=== PATIENT | male | born 1945 | race Caucasian/White ===

== ENCOUNTER 2017-08-28 07:05 | Outpatient (CLI) | payer OTHER | END 2017-08-28 07:16 | disposition home or self-care (01) | LOC: SONOGRAMA 07:05 | DX: N28.1 Cyst of kidney, acquired (principal) ==

== ENCOUNTER → 2017-10-23 | Outpatient (CLI) | payer OTHER | END | disposition home or self-care (01) | LOC: TOM 09:00 | DX: N20.0 Calculus of kidney (principal) ==

== ENCOUNTER 2018-01-01 03:55 | Emergency (ER) | payer OTHER ==
[~2018-01-01] VITALS: Ht 175.3 cm; Wt 89.8 kg
[2018-01-01] MEDS ORDERED: LIPITOR20 MG (04:06)
[2018-01-01] MEDS ORDERED: IRBESARTAN150 MG (04:06)
[2018-01-01] MEDS ORDERED: ORPHENADRINE C100 MG PO (05:00)
[2018-01-01] MEDS ORDERED: KETO10TA2 PO (05:00)
== END 2018-01-01 05:20 | disposition home or self-care (01) ==
LOC: ER 03:55
DX: M54.2 Cervicalgia (principal)

== ENCOUNTER 2020-05-16 12:07 | Outpatient (CLI) | payer OTHER ==
[~2020-05-16 12:07] MED LIST: IRBESARTAN150 MG; KETO10TA2 PO; LIPITOR20 MG; ORPHENADRINE C100 MG PO
== END 2020-05-16 12:15 | disposition home or self-care (01) ==
LOC: LAB 12:07
PROVIDERS: ATTEND Urology
DX: R31.0 Gross hematuria (principal); N28.1 Cyst of kidney, acquired; R31.1 Benign essential microscopic hematuria

== ENCOUNTER → 2020-05-25 | Outpatient (CLI) | payer OTHER | END | disposition home or self-care (01) | LOC: TOM 07:14 | PROVIDERS: ATTEND Urology | DX: Q44.6 Cystic disease of liver (principal); K40.90 Unilateral inguinal hernia, without obstruction or gangrene, not specified as recurrent | CPT/HCPCS: 74178; Q9965 ==

== ENCOUNTER 2020-09-28 06:52 | Day surgery (SDC) | payer OTHER ==
[~2020-09-28 06:52] MED LIST changes: +AMLODIP PO; +VIAGRA100 MG PO
== END 2020-09-28 14:30 | disposition home or self-care (01) ==
LOC: CIR.AMB 06:52
PROVIDERS: ATTEND Urology
DX: C61 Malignant neoplasm of prostate (principal); C67.8 Malignant neoplasm of overlapping sites of bladder; D29.1 Benign neoplasm of prostate; Z20.822 Contact with and (suspected) exposure to COVID-19

== ENCOUNTER → 2020-10-16 09:10 | Outpatient (CLI) | payer OTHER | END | disposition home or self-care (01) | LOC: NUCLEAR 07:00 | PROVIDERS: ATTEND Urology | DX: I65.29 Occlusion and stenosis of unspecified carotid artery (principal) ==

== ENCOUNTER 2021-03-01 10:13 | Emergency (ER) | payer OTHER ==
[~2021-03-01] VITALS: Ht 177.8 cm; Wt 86.2 kg
[2021-03-01] MEDS ORDERED: ORPHENADRINE C100 MG PO (13:46)
[2021-03-01] MEDS ORDERED: CELEBREX100 MG PO (13:46)
== END 2021-03-01 13:53 | disposition home or self-care (01) ==
LOC: ER 10:13
DX: S33.5XXA Sprain of ligaments of lumbar spine, initial encounter (principal); S23.3XXA Sprain of ligaments of thoracic spine, initial encounter; S00.83XA Contusion of other part of head, initial encounter; F41.8 Other specified anxiety disorders; W18.09XA Striking against other object with subsequent fall, initial encounter; Y93.89 Activity, other specified; Y92.89 Other specified places as the place of occurrence of the external cause; Y99.8 Other external cause status

== ENCOUNTER 2021-04-23 08:00 | Inpatient (IN) | payer OTHER ==
[~2021-04-23] VITALS: Ht 180.3 cm; Wt 86.2 kg
[~2021-04-23 08:00] MED LIST changes: +CELEBREX100 MG PO
[2021-04-23] MEDS ORDERED: SERTRALINE PO (09:47)
[2021-04-23] MEDS ORDERED: BENICAR40 MG PO (09:47)
== END 2021-04-28 17:12 | disposition home or self-care (01) | DRG 708 ==
LOC: SURH 04-26 05:30 → O/R 04-26 05:30 → SURH 04-26 07:00 → SURG 04-27 08:05
PROVIDERS: ADMIT Urology; ATTEND Urology
PROC: 07BC0ZZ Excision of Pelvis Lymphatic, Open Approach (ICD-10-PCS; 2021-04-26)
PROC: 0TBD0ZX Excision of Urethra, Open Approach, Diagnostic (ICD-10-PCS; 2021-04-26)
PROC: 0VT00ZZ Resection of Prostate, Open Approach (ICD-10-PCS; principal; 2021-04-26 07:00)
DX: C61 Malignant neoplasm of prostate (principal); D36.0 Benign neoplasm of lymph nodes; R59.9 Enlarged lymph nodes, unspecified; I10 Essential (primary) hypertension

== ENCOUNTER 2021-08-31 08:15 | Outpatient (CLI) | payer OTHER ==
[~2021-08-31 08:15] MED LIST changes: +BENICAR40 MG PO; +SERTRALINE PO
== END 2021-08-31 08:24 | disposition home or self-care (01) ==
LOC: LAB 08:15
DX: Z03.818 Encounter for observation for suspected exposure to other biological agents ruled out (principal)

== ENCOUNTER 2021-08-31 08:48 | Outpatient (CLI) | payer OTHER | END 2021-08-31 08:54 | disposition home or self-care (01) | LOC: RAD 08:48 | DX: Z01.818 Encounter for other preprocedural examination (principal) ==

== ENCOUNTER 2021-09-06 07:13 | Outpatient (CLI) | payer OTHER | END 2021-09-06 07:17 | disposition home or self-care (01) | LOC: LAB 07:13 | DX: Z20.822 Contact with and (suspected) exposure to COVID-19 (principal) ==

== ENCOUNTER 2021-09-13 08:49 | Outpatient (CLI) | payer OTHER | END 2021-09-13 08:54 | disposition home or self-care (01) | LOC: LAB 08:49 | PROVIDERS: ATTEND Urology | DX: C61 Malignant neoplasm of prostate (principal); C67.9 Malignant neoplasm of bladder, unspecified; N30.00 Acute cystitis without hematuria ==

== ENCOUNTER 2021-11-12 08:32 | Outpatient (CLI) | payer OTHER | END 2021-11-12 08:35 | disposition home or self-care (01) | LOC: NUCLEAR 08:32 | PROVIDERS: ATTEND Urology | DX: C61 Malignant neoplasm of prostate (principal); M79.662 Pain in left lower leg; I82.409 Acute embolism and thrombosis of unspecified deep veins of unspecified lower extremity ==

== ENCOUNTER 2021-11-12 11:57 | Outpatient (CLI) | payer OTHER | END 2021-11-12 11:59 | disposition home or self-care (01) | LOC: TOM 11:57 | PROVIDERS: ATTEND Urology | DX: C61 Malignant neoplasm of prostate (principal); C67.9 Malignant neoplasm of bladder, unspecified ==

== ENCOUNTER 2021-11-26 10:11 | Outpatient (CLI) | payer OTHER | END 2021-11-26 13:05 | disposition home or self-care (01) | LOC: LAB 10:11 | DX: H16 Keratitis (principal) ==

== ENCOUNTER → 2022-05-01 | Outpatient (CLI) | payer OTHER | END | disposition home or self-care (01) | LOC: RAD 13:54 | DX: M51.17 Intervertebral disc disorders with radiculopathy, lumbosacral region (principal) ==

== ENCOUNTER 2022-09-02 09:44 | Outpatient (CLI) | payer OTHER | END 2022-09-02 09:50 | disposition home or self-care (01) | LOC: LAB 09:44 | DX: H53.9 Unspecified visual disturbance (principal); H18.11 Bullous keratopathy, right eye ==

== ENCOUNTER 2022-09-05 08:20 | Outpatient (CLI) | payer OTHER | END 2022-09-05 08:23 | disposition home or self-care (01) | LOC: TOM 08:20 | PROVIDERS: ATTEND Urology | DX: C61 Malignant neoplasm of prostate (principal); C67.9 Malignant neoplasm of bladder, unspecified ==

== ENCOUNTER 2023-05-11 10:48 | Outpatient (CLI) | payer OTHER | END 2023-05-11 10:56 | disposition home or self-care (01) | LOC: LAB 10:48 | DX: H16.011 Central corneal ulcer, right eye (principal) ==

== ENCOUNTER 2024-02-25 09:49 | Outpatient (CLI) | payer OTHER ==
[2024-02-25 12:12] LABS: PH,URINE 5.5 (5.0-8.0); URINE APPEARANCE Clear; URINE BILIRRUBIN Negative (NEGATIVE); URINE BLOOD Trace; URINE COLOR Dark Yellow; URINE GLUCOSE Negative (NEGATIVE); URINE KETONE Trace (NEGATIVE); URINE LEUKOCYTE Negative; URINE NITRATE Negative; URINE PROTEIN Negative (NEGATIVE); URINE UROBILINOGEN 0.2 E.U./dl
[2024-02-25 12:16] LABS: URINE BACTERIA 31.4 uL (0.0-1933); URINE EPITHELIAL CELLS 15.7 uL (0.0-38.8); URINE RBC 10.5 uL (0.0-20.8); URINE WBC 12.3 uL (0.0-23.2)
[2024-02-25 12:23] LABS: CREATININE SERUM 0.74 mg/dL (0.70-1.30)
[2024-02-25 12:31] LABS: URINE CAST 0.45 uL (0.0-1.40)
== END 2024-02-25 09:50 | disposition home or self-care (01) ==
LOC: LAB 09:49
PROVIDERS: ATTEND Urology
DX: R31.0 Gross hematuria (principal); C61 Malignant neoplasm of prostate; N30.00 Acute cystitis without hematuria

== ENCOUNTER 2024-02-26 09:03 | Outpatient (CLI) | payer OTHER | END 2024-02-26 09:04 | disposition home or self-care (01) | LOC: TOM 09:03 | PROVIDERS: ATTEND Urology | DX: R31.0 Gross hematuria (principal); C61 Malignant neoplasm of prostate | CPT/HCPCS: 74178; Q9965 ==